=== PATIENT | female | born 1995 | race Caucasian/White ===

== ENCOUNTER 2017-09-02 04:11 | Inpatient (IN) | payer OTHER ==
[~2017-09-02] VITALS: Ht 157.5 cm; Wt 124.7 kg
[~2017-09-02 04:11] MED LIST: AMOXICILLIN500 M1 PO; CIPRODEX 0.3%-7.5 ML OTIC; GLUCOPHAGE XR500 M1 PO; LEXAPRO20 M1 PO; PERCOCET 325 MG1 TA2 PO; VITAMIN D250000 UNIT PO; WELLBUTRIN SR100 M2 PO
--- NOTE | 2017-09-02 07:56 | Admission Core Measures ---
Acute Coronary Syndrome (CM) ACS Core Measures Acute Coronary Syndrome Diagnosis No Congestive Heart Failure (NEW) CHF Core Measures Congestive Heart Failure Diagnosis No Cerebrovascular Accident (NEW) CVA Core Measures CVA/TIA Diagnosis No Venous Thromboembolism VTE Core Patsy (View Protocol) VTE Risk Factors Surgery No Mechanical VTE Prophylaxis d/t N/A MechProphylax Ordered No VTE Pharm Prophylaxis d/t NA PharmProphylax ordered Problem List As ranked by this Provider includes Assessment & Plan 1. S/P laparoscopic sleeve gastrectomy 2. Depression 3. Diabetes 4. Morbid obesity HOME MEDS Home Med List Bupropion HCl (Wellbutrin Sr) 100 MG TABLET.ER 1 TAB PO BID ANXIETY (Reported ) Ergocalciferol (Vitamin D2) (Vitamin D2) 50,000 UNIT CAPSULE 1 CAP PO QW SUPP (Reported) Escitalopram Oxalate (Lexapro) 20 MG TABLET 1 TAB PO DAILY ANXIETY (Reported) Metformin HCl (Glucophage XR) 500 MG TAB.ER.24H 1 TAB PO DAILY DIABETES ( Reported)
--- NOTE | 2017-09-02 11:50 | Operative Report ---
Operative/Inv Procedure Report Surgery Date: 09/02/17 Name of Procedure: Laparoscopic Sleeve Gastrectomy, Laparoscopic Hiatal hernia repair Pre-Operative Diagnosis: Morbid Obesity BMI 52, Prediabetes, HANK Post-Operative Diagnosis: Morbid Obesity BMI 52, Prediabetes, HANK, Hiatal hernia Estimated Blood Loss: less than 50ml Surgeon/It Service Continuity Supervisor: Dann Grimes DO Anesthesia: general endotracheal tube IV Fluids: 1200 cc Drains: None Specimens: Stomach Complications: None Condition: Stable Operative Indication: This is a 22-year-old female presented to the office for workup for bariatric surgery. After appropriate workup was completed I discussed with the patient the band, the sleeve, and the gastric bypass. The patient chose to undergo a sleeve gastrectomy. All risks including but not limited to bleeding, infection, leak, stricture, injury to surrounding bowel/esophagus/stomach/liver/spleen, long-term reflux, DVT/PE, and mortality of 08/999 patients were discussed in detail. The patient understood everything and decided to proceed. Operative/Procedure Note Note: The patient was brought to the operating room and placed on the operating room table in supine position. Venodyne stockings were placed and adequate general endotracheal anesthesia was obtained. The patient was prepped and draped in standard surgical fashion. Began the procedure by making a 2 cm transverse incision supraumbilically and slightly to the left of the midline. Then using a 12 mm clear Visiport and a 10 mm 0 laparoscope, the abdominal cavity was accessed. Great care was taken to go through the anterior rectus sheath, the posterior rectus sheath, and through the peritoneum. Once we entered the peritoneum the abdominal cavity was insufflated to 15 mmHg. Upon initial examination no obvious gross pathology was seen. Accessory trocars were placed, 5 mm in the epigastrium for the Burke liver retractor. The retractor was inserted and the liver was retracted anteriorly exposing the hiatus, small hiatal hernia was seen. 5 mm ports were placed in the right and left upper quadrant, a 5 mm left lateral port, and a 15 mm right lateral port. Began the procedure by mobilizing the greater curvature of the stomach approximately 7 cm from the pylorus. Once the retrogastric space was reached the whole greater curvature was mobilized maintaining hemostasis using Harmonic scalpel. Full hiatal dissection was performed, a small hiatal hernia was seen. The left janis of the diaphragm was dissected away from the esophagus, reducing the hernia sac. We then brought our attention to the right janis, the pars flaccida was opened until the right janis was clearly visualized. Following this the right janis was dissected away from the esophagus as well and the esophagus was circumferentially dissected out of the chest. At the completion of dissection the esophagus was in the abdominal cavity for about 2-3 cm. The esophagus was retracted anteriorly and the hiatus was closed using 2-0 Tycron suture. At the completion of the closure there was ample room for the esophagus and the hiatus was adequately closed. Posterior adhesions were taken down using Harmonic scalpel as well. Once the stomach was adequately mobilized a 38 Serbian bougie was inserted and placed along the lesser curvature of the stomach. Once the bougie was in the appropriate position we began creating our sleeve, two 60 mm black staple loads with seamguard followed by two 60 mm purple staple loads with seamguard, and finished with 45 mm purple load with seamguard as well. Great care was taken to leave ample room at the incisura angularis, to prevent any twisting or kinking of the sleeve, to stay lateral to the esophagogastric fat pad, and to do a full fundal excision. At the completion of the staple line the staple line was examined, it appeared intact and some bleeding was noted and was controlled using endoclips. The bougie was removed, the sleeve was lying nicely without any twisting or kinking. The resected stomach was removed through the right lateral port site. The port and the left upper quadrant were irrigated until clear. All ports were removed under direct visualization no obvious bleeding was noted. The 15 mm port site fascia was closed using 0 Vicryl suture. The skin was closed using 4-0 Monocryl. Steri-Strips and dressings were placed. The patient was successfully extubated and transferred to the recovery room in stable condition. The patient tolerated the procedure well with no complications. Findings: 3 cm hiatal hernia, 38 Fr bougie CC: Mainor MOLINA,Sarah
[2017-09-02 13:15] VITALS: BP 118/68
--- NOTE | 2017-09-02 15:12 | Patient Discharge Instructions ---
Discharge Instructions General Discharge Information You were seen/treated for: Morbid Obesity (BMI 52), Prediabetes, HANK, Hiatal hernia You had these procedures: Surgery Date: 09/02/17 Name of Procedure: Laparoscopic Sleeve Gastrectomy, Laparoscopic Hiatal hernia repair Watch for these problems: fever>101.3, increased pain, redness/swelling/drainage, dizziness, shortness of breath, chest pains No bath, but you may shower: Yes Other wound care: ok to remove outer dressings. leave white steri strips in place. keep incisions clean & dry. Special Instructions: continue lovenox injections, as directed Diet Continue normal diet: No Recommended Diet: Bariatric Additional DIET Information: weekly bariatric diet advancement, as tolerated, and as directed Activity Full Activity/No Limits: No Activity Self Limited: Yes Pounds, do NOT lift more than: 10 Other activity limits: no heavy lifting. no strenuous activity. Acute Coronary Syndrome Inclusion Criteria At DC or during hospital stay patient has or had the following: ACS DIAGNOSIS No Discharge Core Measures Meds if any: Prescribed or Continued at Discharge Meds if any: NOT Prescribed or Continued at Discharge Congestive Heart Failure Inclusion Criteria At DC or during hospital stay patient has or had the following: CHF DIAGNOSIS No Discharge Core Measures Meds if any: Prescribed or Continued at Discharge Meds if any: NOT Prescribed or Continued at Discharge Cerebrovascular accident Inclusion Criteria At DC or during hospital stay patient has or had the following: CVA/TIA Diagnosis No Discharge Core Measures Meds if any: Prescribed or Continued at Discharge Meds if any: NOT Prescribed or Continued at Discharge Venous thromboembolism Inclusion Criteria VTE Diagnosis No VTE Type NONE VTE Confirmed by (Test) NONE Discharge Core Measures - Per Current guidelines, there needs to be overlap - treatment for the first 5 days of Warfarin therapy. - If discharged on Warfarin prior to 5 days of - overlap therapy, the patient will need to be - assessed for post discharge needs including - *Post discharge parental anticoagulation - *Warfarin and/or parental anticoagulation education - *Follow up date to check INR post discharge At least 5 days overlap therapy as Inpatient No Meds if any: Prescribed or Continued at Discharge Note: Overlap Therapy is Warfarin and Anticoagulant Meds if any: NOT Prescribed or Continued at Discharge
[2017-09-02] MEDS ORDERED: HYCET 7.5 MG-3473 ML PO (15:16)
[2017-09-02] MEDS ORDERED: PROTONIX40 M3 PO (15:16)
[2017-09-02] MEDS ORDERED: LOVENOX40 MG/0.1 SC (15:16)
--- NOTE | 2017-09-02 15:21 | Surg Short-stay <48hrs Dis Sum ---
Visit Information Visit Dates Admission Date: 09/02/17 Discharge Date: 09/04/17 Surgical Short Stay DC Summary Admission Diagnosis: Morbid Obesity (BMI 52), Prediabetes, HANK Final Diagnosis: Morbid Obesity (BMI 52), Prediabetes, HANK, Hiatal hernia Procedure(s): Surgery Date: 09/02/17 Name of Procedure: Laparoscopic Sleeve Gastrectomy, Laparoscopic Hiatal hernia repair Summary/Significant Findings: Electively scheduled laparoscopic sleeve gastrectomy, and laparoscopic hiatal hernia repair done by on 09/02/17 for a history of morbid obesity (BMI 52), prediabetes, HANK, and hiatal hernia found intra-operatively. Post- operatively, the patient was started on a stage 1 bariatric diet. Accuchecks were done every 6 hours, with discontinuation of metformin. Lovenox teaching done prior to discharge, and this prescription was filled pre-operatively. Pain control transitioned from IV to oral medication. Condition at Discharge: stable Discharge Disposition: home or self care Discharge instructions provided to patient/family: Yes Post discharge follow-up plan: one week follow up with continue lovenox injections, as per risk assessment stop metformin, and continue to check blood sugar Copies to: Mainor MOLINA,Sarah
[2017-09-02 15:30] VITALS: BP 136/79
--- NOTE | 2017-09-02 15:35 | PN- Bariatrics ---
Subjective Subjective: POST-OP NOTE: Mild nausea and some epigastric discomfort. Tolerating stage 1. Out of bed without dizziness. No shortness of breath. No chest pains. Due to void this evening. Lovenox prescription filled pre-op. Objective Vital Signs and I&Os Vital Signs Date Time Temp Pulse Resp B/P B/P Pulse O2 O2 Flow FiO2 Mean Ox Delivery Rate 09/02 1315 97.9 96 18 118/68 93 Room Air Intake & Output 09/02 1600 09/02 0800 09/02 0000 09/01 1600 09/01 0800 09/01 0000 Intake Total Output Total Balance Patient 275 lb Weight Weight Reported by Patient Measurement Method Physical Exam: General - alert & oriented x 3. comfortable. no acute distress. Lungs - clear bilaterally. no w/r/r. Cardiac - s1s2. reg. Abdomen - soft. dressings stained, but intact. no drains. expected case- incisional tenderness. Extremities - warm bilaterally. no c/c/e. calves soft and nontender b/l. alps in place. Current Medications: Current Medications Sig/Lilo Start time Last Medication Dose Route Stop Time Status Admin Acetaminophen 1,000 MG Q6H 09/02 1600 AC N/A 1 UNIT IV 09/03 1014 Bupropion HCl 100 MG BID 09/02 2200 AC PO Cefazolin Sodium 3,000 MG IQ8 09/02 1600 AC IV 09/03 0001 Cefazolin Sodium 3,000 MG ONCE 09/02 0000 NR IV 09/02 2359 Dextrose/Sodium 1,000 ML Q8H 09/02 0815 AC 09/02 Chloride IV 1324 Escitalopram Oxalate 20 MG DAILY 09/03 1000 AC PO Heparin Sodium 5,000 UNIT Q8 09/02 2200 AC (Porcine) SC Heparin Sodium 5,000 UNIT ONCE 09/02 0000 NR (Porcine) SC 09/02 2359 Hydrocodone Bitart/ 15 ML Q6P PRN 09/02 0800 AC Acetaminophen PO Hydromorphone HCl 1 MG Q4P PRN 09/02 0800 AC 09/02 IV 1451 Insulin Aspart 0 Q6 09/02 1200 AC SC Ondansetron HCl 4 MG Q6P PRN 09/02 0800 AC IV Pantoprazole Sodium 40 MG DAILY 09/03 1000 AC IV Simethicone 40 MG Q6P PRN 09/02 0800 AC 09/02 PO 1455 Results Last 48 Hours of Labs: Laboratory Tests 09/02 0804 Chemistry Total Beta HCG (NEGATIVE) NEGATIVE Urines Urine Test Cancelled Assessment/Plan Assessment/Plan This 22 year old female with history of morbid obesity (bmi 52), prediabetes, jose ramon, and hiatal hernia, is POD#0 s/p lap sleeve gastrectomy, and hiatal hernia repair stage 1 diet as tolerated npo after midnight for possible upper gi study in the morning f/u am labs pain control as ordered hold metformin. accuchecks / ss coverage q6 hep sc - dvt ppx oob/ambulation protonix - gi ppx lovenox teaching for home (prescription filled pre-op) case-operative ancef x 2 doses d/c planning 1-2 days will d/w Core Measures Venous Thromboembolism VTE Risk Factors Surgery No Mechanical VTE Prophylaxis d/t N/A MechProphylax Ordered No VTE Pharm Prophylaxis d/t NA PharmProphylax ordered
[2017-09-02 17:30] VITALS: BP 117/65
[2017-09-02 20:08] VITALS: BP 143/74
[2017-09-02 22:50] VITALS: BP 117/75
[2017-09-03 06:42] VITALS: BP 120/72
--- NOTE | 2017-09-03 07:29 | PN- Bariatrics ---
Subjective Subjective: Patient doing well, no nausea, no vomiting, minimal pain. No fever or flulike illness. Objective Vital Signs and I&Os Vital Signs Date Time Temp Pulse Resp B/P B/P Pulse O2 O2 Flow FiO2 Mean Ox Delivery Rate 09/03 0642 98.2 86 20 120/72 100 Room Air 09/02 2250 99.1 87 20 117/75 96 Room Air 09/02 2007 99.2 97 20 143/74 93 Room Air 09/02 2000 93 Room Air 09/02 1730 98.9 94 20 117/65 94 Room Air 09/02 1600 99 Room Air 09/02 1530 98.5 94 20 136/79 94 Room Air 09/02 1315 97.9 96 18 118/68 93 Room Air Intake & Output 09/03 0800 09/03 0000 09/02 1600 09/02 0800 09/02 0000 09/01 1600 Intake Total 250 930 650 Output Total 300 Balance 250 930 350 Intake, IV 250 750 500 Intake, Oral 180 150 Output, Urine 300 Patient 275 lb Weight Weight Reported by Patient Measurement Method Physical Exam: Well-developed well-nourished no apparent distress. HEENT: Atraumatic, extraocular motion intact Neck: Supple, no lymphadenopathy Respiratory: No respiratory distress Abdomen: Obese, minimal tenderness in the epigastrium, incisions clean dry and intact with scant bloody drainage on some dressings. Positive bowel sounds. Extremities: No edema, no calf pain Neuro: Alert and oriented x3 Psych: Mood affect normal, normal memory normal judgment. Skin: Warm and dry, no rash on exposed skin Results Last 48 Hours of Labs: Laboratory Tests 09/02 08 Chemistry Total Beta HCG (NEGATIVE) NEGATIVE Urines Urine Test Cancelled Assessment/Plan Assessment/Plan This 22 year old female with history of morbid obesity (bmi 52), prediabetes, jose ramon, and hiatal hernia, is POD#1 s/p lap sleeve gastrectomy, and hiatal hernia repair stage 1 diet as tolerated cancel upper gi study in the morning as patient is doing very well and it is not clinically necessary. Follow a.m. labs pain control as ordered hold metformin. accuchecks / ss coverage q6 hep sc - dvt ppx oob/ambulation protonix - gi ppx lovenox teaching for home (prescription filled pre-op) Possible discharge home later today versus tomorrow will d/w Core Measures Venous Thromboembolism VTE Risk Factors Surgery No Mechanical VTE Prophylaxis d/t N/A MechProphylax Ordered No VTE Pharm Prophylaxis d/t NA PharmProphylax ordered
[2017-09-03 12:45] LABS: ABSOLUTE BASOPHIL COUNT 0.1 /CUMM (0.0-0.2); ABSOLUTE EOSINOPHIL COUNT 0 /CUMM (0.0-0.7); ABSOLUTE GRANULOCYTE CT 9.7 /CUMM (1.4-6.5); ABSOLUTE LYMPH COUNT 2.2 /CUMM (1.2-3.4); ABSOLUTE MONOCYTE COUNT 1.6 /CUMM (0.10-0.60); BASOPHIL % 0.4 % (0.0-2.0); EOSINOPHIL % 0 % (0-5); GRANULOCYTE % 71.8 % (42.2-75.2); HEMATOCRIT 38.9 % (37-47); MEAN CORPUSCULAR HGB 28.5 PG (27.0-31.0); MEAN CORPUSCULAR HGB CONC 32.8 G/DL (33.0-37.0); MEAN PLATELET VOLUME 8.5 FL (7.4-10.4); PLATELET COUNT 375 /CUMM (130-400); RBC DISTRIBUTION WIDTH 14.2 % (11.5-14.5); RED BLOOD CELL CT 4.48 /CUMM (4.20-5.40); WHITE BLOOD CELL COUNT 13.6 /CUMM (4.8-10.8)
[2017-09-03 14:38] VITALS: BP 144/80
[2017-09-03 22:52] VITALS: BP 156/86
[2017-09-04 06:35] VITALS: BP 124/86
--- NOTE | 2017-09-04 07:36 | PN- Bariatrics ---
Subjective Subjective: Tolerating stage 1 diet. No nausea. Pain controlled. Ambulating without difficulty. No dizziness. No shortness of breath. No chest pains. Voiding well. No flatus yet, but willing to try milk of mag. She verbalizes understanding of lovenox administration / indication, and has prescription filled for this. Objective Vital Signs and I&Os Vital Signs Date Time Temp Pulse Resp B/P B/P Pulse O2 O2 Flow FiO2 Mean Ox Delivery Rate 09/03 2252 98.8 78 18 156/86 95 Room Air 09/03 2200 Room Air 09/03 1600 96 Room Air Room Air 09/03 1438 98.2 82 20 144/80 94 Room Air 09/03 1400 95 Room Air Room Air 09/03 1220 Room Air 09/03 0800 95 Room Air Room Air Intake & Output 09/04 0809/04 0000 09/03 1600 09/03 0800 09/03 0000 09/02 1600 Intake Total 820 1110 1090 930 650 Output Total 600 300 Balance 220 1110 1090 930 350 Intake, IV 127 976 8621 750 500 Intake, Oral 570 360 90 180 150 Output, Urine 600 300 Patient 275 lb Weight Weight Reported by Patient Measurement Method Physical Exam: General - alert & oriented x 3. comfortable. no acute distress. Lungs - clear bilaterally. no w/r/r. Cardiac - s1s2. reg. Abdomen - soft. dressings stained but intact. expected case-incisional tenderness. no drains. Extremities - warm bilaterally. no c/c/e. calves soft and nontender b/l. Current Medications: Current Medications Sig/Lilo Start time Last Medication Dose Route Stop Time Status Admin Acetaminophen 1,000 MG Q6H 09/02 1600 DC 09/03 N/A 1 UNIT IV 09/03 1014 0556 Bupropion HCl 100 MG BID 09/02 220 AC 09/03 PO 2108 Dexamethasone 8 MG ONCE PRN 09/02 1545 AC 09/02 IV PUSH 1731 Dextrose/Sodium 1,000 ML Q8H 09/02 0815 DC 09/03 Chloride IV 1636 Escitalopram Oxalate 20 MG DAILY 09/03 1000 AC 09/03 PO 1012 Heparin Sodium 5,000 UNIT Q8 09/02 2200 AC 09/04 (Porcine) SC 0603 Hydrocodone Bitart/ 15 ML Q6P PRN 09/02 0800 AC 09/03 Acetaminophen PO 1832 Hydromorphone HCl 1 MG Q4P PRN 09/02 0800 AC 09/04 IV 0618 Insulin Aspart 0 Q6 09/02 1200 AC 09/02 SC 1719 Magnesium Hydroxide 30 ML ONE ONE 09/04 0730 UNVr PO 09/04 0731 Ondansetron HCl 4 MG .STK-MED ONE 09/03 211 DC IM 09/03 211 Ondansetron HCl 4 MG Q6P PRN 09/02 0800 AC 09/03 IV 211 Pantoprazole Sodium 40 MG DAILY 09/03 1000 AC 09/03 IV 0912 Simethicone 40 MG Q6P PRN 09/02 0800 AC 09/02 PO 1455 Results Last 48 Hours of Labs: Laboratory Tests 09/03 09/02 1148 0804 Chemistry Sodium (137 - 145 mmol/L) 144 Potassium (3.5 - 5.1 mmol/L) 4.0 Chloride (98 - 107 mmol/L) 108 H Carbon Dioxide (22 - 30 mmol/L) 24 Anion Gap (5 - 16) 12 BUN (7 - 17 mg/dL) 7 Creatinine (0.5 - 1.0 mg/dL) 0.7 Estimated GFR (>60 ml/min) > 60 BUN/Creatinine Ratio (7 - 25 %) 10.0 Glucose (65 - 99 mg/dL) 99 Magnesium (1.6 - 2.3 mg/dL) 2.0 Total Beta HCG (NEGATIVE) NEGATIVE Hematology CBC w Diff NO MAN DIFF REQ WBC (4.8 - 10.8 /CUMM) 13.6 H RBC (4.20 - 5.40 /CUMM) 4.48 Hgb (12.0 - 16.0 G/DL) 12.8 Hct (37 - 47 %) 38.9 MCV (81.0 - 99.0 FL) 87.0 MCH (27.0 - 31.0 PG) 28.5 RDW (11.5 - 14.5 %) 14.2 Plt Count (130 - 400 /CUMM) 375 MPV (7.4 - 10.4 FL) 8.5 Gran % (42.2 - 75.2 %) 71.8 Lymphocytes % (20.5 - 51.1 %) 15.9 L Monocytes % (1.7 - 9.3 %) 11.9 H Eosinophils % (0 - 5 %) 0 Basophils % (0.0 - 2.0 %) 0.4 Absolute Granulocytes (1.4 - 6.5 /CUMM) 9.7 H Absolute Lymphocytes (1.2 - 3.4 /CUMM) 2.2 Absolute Monocytes (0.10 - 0.60 /CUMM) 1.6 H Absolute Eosinophils (0.0 - 0.7 /CUMM) 0 Absolute Basophils (0.0 - 0.2 /CUMM) 0.1 PUBS MCHC (33.0 - 37.0 G/DL) 32.8 L Urines Urine Test Cancelled Assessment/Plan Assessment/Plan This 22 year old female with history of morbid obesity (bmi 52), prediabetes, jose ramon, and hiatal hernia, is POD#2 s/p lap sleeve gastrectomy, and hiatal hernia repair tolerating stage 1 diet pain control as ordered continue to hold metformin. accuchecks stable hep sc - dvt ppx oob/ambulation protonix - gi ppx lovenox teaching done d/c home today will give milk of mag this morning will d/w Core Measures Venous Thromboembolism VTE Risk Factors Surgery No Mechanical VTE Prophylaxis d/t N/A MechProphylax Ordered No VTE Pharm Prophylaxis d/t NA PharmProphylax ordered
== END 2017-09-04 11:25 | DRG 403 ==
LOC: SDA 04:11 → ENRESERV 12:13 → ENTRNSPT 12:56 → EDTRNSPTSTS 13:11 → EDTRNSPT 13:11 → CMPTRNSPT 13:15 → 2NB 13:21 → ENPENDDIS 09-04 08:53 → ENTRNSPT 09-04 11:10 → EDTRNSPTSTS 09-04 11:18 → EDTRNSPT 09-04 11:18 → 2NB 09-04 11:25 → CMPTRNSPT 09-04 11:31
PROVIDERS: Physician Assistant
PROC: 0DB64Z3 Excision of Stomach, Percutaneous Endoscopic Approach, Vertical (ICD-10-PCS; principal; 2017-09-02)
PROC: 0BQT4ZZ Repair Diaphragm, Percutaneous Endoscopic Approach (ICD-10-PCS; principal; 2017-09-02)
PROC: 3E0T3BZ Introduction of Anesthetic Agent into Peripheral Nerves and Plexi, Percutaneous Approach (ICD-10-PCS; 2017-09-02)
DX: E66.01 Morbid (severe) obesity due to excess calories (principal); Z68.43 Body mass index [BMI] 50.0-59.9, adult; K44.9 Diaphragmatic hernia without obstruction or gangrene; G47.33 Obstructive sleep apnea (adult) (pediatric); K21.9 Gastro-esophageal reflux disease without esophagitis; R73.03 Prediabetes; F32.9 Major depressive disorder, single episode, unspecified
CPT/HCPCS: 2NBP; 36415; 81025; 82436; C9399; J0131; J0690; J1100; J1630; J1644; J2405; J7042